=== PATIENT | female | born 2000 ===

== ENCOUNTER 2021-07-20 10:21 | Emergency (ER) | payer OTHER ==
[2021-07-20 10:24] VITALS: BP 100/67; PULSE 92; RESP 18; TEMP 98
[2021-07-20] MEDS ORDERED: IBUPROFEN 600 MG TAB PO STA (10:54)
[2021-07-20] MEDS ORDERED: ACETAMINOPHEN TAB 500 MG TAB PO STA (10:54)
[2021-07-20] MEDS ORDERED: BENZONATATE 100 MG CAP PO STA (11:17)
--- NOTE | 2021-07-20 11:53 | XR ---
EXAMINATION TYPE: XR chest 2V DATE OF EXAM: 07/20/2021 COMPARISON: None HISTORY: 20-year-old female with cough and congestion TECHNIQUE: PA and lateral views FINDINGS: The cardiomediastinal silhouette, aorta, and pulmonary vasculature are within normal limits. Lungs an d pleural spaces are clear. IMPRESSION: No acute cardiopulmonary process.
--- NOTE | 2021-07-20 12:02 | ED ---
General Adult HPI - General Chief complaint: Upper Respiratory Infection Stated complaint: SOB/Cough Time Seen by Provider: 07/20/21 10:28 Source: patient Mode of arrival: ambulatory Limitations: no limitations - History of Present Illness Initial comments: 20-year-old female presents to the emergency room for a chief complaint of cough. Patient states for the past 2 days she has had a cough as well as a headache and sore throat. She has had body aches as well. Her chest hurts when she coughs but only when she coughs. She has tried Excedrin and other [id number] cold and flu medication but in the past 2 days it has not gone away. She denies any fevers. Denies difficulty swallowing.Patient has no other complaints at this time including shortness of breath, chest pain, abdominal pain, nausea or vomiting, or visual changes. - Related Data Previous Rx's Medication Instructions Recorded Benzonatate [Tessalon Perles] 200 mg PO Q8H PRN #30 capsule 07/20/21 guaiFENesin [Mucinex] 1,200 mg PO Q12HR PRN #20 tab 07/20/21 Allergies Allergy/AdvReac Type Severity Reaction Status Date / Time No Known Allergies Allergy Verified 07/20/21 10:24 Review of Systems ROS Statement: Those systems with pertinent positive or pertinent negative responses have been documented in the HPI. ROS Other: All systems not noted in ROS Statement are negative. Past Medical History Past Medical History: No Reported History History of Any Multi-Drug Resistant Organisms: None Reported Past Surgical History: No Surgical Hx Reported Past Psychological History: No Psychological Hx Reported Smoking Status: Never smoker Past Alcohol Use History: Occasional Past Drug Use History: Marijuana General Exam Limitations: no limitations General appearance: alert, in no apparent distress Head exam: Present: atraumatic Eye exam: Present: normal appearance, PERRL, EOMI. Absent: scleral icterus, conjunctival injection ENT exam: Present: normal exam, normal oropharynx, mucous membranes moist, TM's normal bilaterally, normal external ear exam Neck exam: Present: normal inspection, full ROM. Absent: tenderness Respiratory exam: Present: normal lung sounds bilaterally, chest wall tenderness (Anterior chest wall tenderness noted). Absent: respiratory distress, wheezes Cardiovascular Exam: Present: regular rate, normal rhythm, normal heart sounds Course Vital Signs 07/20/21 10:22 Temperature 98 F Pulse Rate 92 Respiratory 18 Rate Blood Pressure 100/67 O2 Sat by Pulse 98 Oximetry Medical Decision Making - Medical Decision Making Vitals are stable. COVID-19 and influenza are negative. Chest x-ray shows no acute cardiopulmonary process. Patient will be treated with Tessalon Perles and Mucinex. She can continue to take Motrin and Tylenol. She will return here for any worsening symptoms. - Lab Data Lab Results 07/20/21 07/20/21 Range/Units 10:35 10:35 Coronavirus (PCR) Not Detected (Not Detectd) Influenza Type A RNA Not Detected (Not Detectd) Influenza Type B (PCR) Not Detected (Not Detectd) Disposition Clinical Impression: Cough Disposition: HOME SELF-CARE Condition: Good Instructions (If sedation given, give patient instructions): Upper Respiratory Infection (ED) Additional Instructions: Take Tessalon perles as needed for cough. Mucinex as needed for congestion. Follow up with your doctor. Return to the ER for any worsening symptoms. Prescriptions: guaiFENesin [Mucinex] 1,200 mg PO Q12HR PRN #20 tab PRN Reason: Congestion Benzonatate [Tessalon Perles] 200 mg PO Q8H PRN #30 capsule PRN Reason: Cough Is patient prescribed a controlled substance at d/c from ED?: No Referrals: Matt Olivares DO [Doctor of Osteopathic Medicine] - 1-2 days Time of Disposition: 12:00
== END 2021-07-20 12:10 | disposition home or self-care (01) ==
LOC: EC 10:21
DX: R05.9 Cough, unspecified (principal); R51.9 Headache, unspecified; R07.0 Pain in throat; Z20.822 Contact with and (suspected) exposure to COVID-19
CPT/HCPCS: 71046; 87502; 87635; 99284

== ENCOUNTER 2024-05-12 06:15 | Inpatient (IN) | payer MEDICAID, OTHER ==
[2024-05-12] MEDS ORDERED: TRANEXAMIC 1,000 MG/100ML-NACL 1,000 MG in EMPTY BAG 1 BAG IV PRN (06:41)
[2024-05-12] MEDS ORDERED: METHYLERGONOVINE 0.2 MG/ML 1 ML AMP IM PRN (06:41)
[2024-05-12] MEDS ORDERED: LIDOCAINE 0.5% (PF) 5 MG/ML (50 ML SDV) SQ PRN (06:41)
[2024-05-12] MEDS ORDERED: TERBUTALINE 1 MG/ML VIAL SQ PRN (06:41)
[2024-05-12] MEDS ORDERED: miSOPROStoL 200 MCG TAB RECTAL PRN (06:41)
[2024-05-12] MEDS ORDERED: miSOPROStoL 200 MCG TAB PO PRN (06:41)
[2024-05-12] MEDS ORDERED: OXYTOCIN 10 UNIT/ML 1 ML VIAL IM PRN (06:41)
[2024-05-12] MEDS ORDERED: CARBOPROST TROMETHAMINE 250 MCG/ML 1 ML AMP IM PRN (06:41)
[2024-05-12] MEDS: LACTATED RINGERS 1,000 ML IV SCH (06:42)
[2024-05-12] MEDS: OXYTOCIN 30 UNITS/500 ML NS 30 UNIT in SALINE 1 500ML.BAG IV SCH (06:50)
[2024-05-12 07:02] LABS: Anisocytosis Slight; Basophils % (A) 0 %; Eosinophils # (A) 0.1 k/uL (0-0.7); Eosinophils % (A) 1 %; HCT 32.2 % (34.0-46.0); Hypochromasia Marked; Lymphocytes # (A) 2.5 k/uL (1.0-4.8); Lymphocytes % (A) 15 %; MCV 74.3 fL (80.0-100.0); Mean Platelet Volume 8.3; Microcytosis Slight; Monocytes # (A) 0.7 k/uL (0-1.0); Monocytes % (A) 4 %; Neutrophils # (A) 13.1 k/uL (1.3-7.7); Neutrophils % (A) 78 %; Platelet Count 298 k/uL (150-450); Poikilocytosis Slight; RBC 4.33 m/uL (3.80-5.40); RDW 16.3 % (11.5-15.5); WBC 16.8 k/uL (3.8-10.6)
[2024-05-12] MEDS ORDERED: BUTORPHANOL 1 MG/ML 1 ML VIAL IV PRN (09:27)
--- NOTE | 2024-05-12 09:32 | P.HPOB ---
History of Present Illness H&P Date: 05/12/24 Chief Complaint: 39+ weeks, elective induction The patient is a 23-year-old 2 para 0-0-1-0 admitted at 39+ weeks as established by last menstrual period and confirmed by 9-week ultrasound. She is admitted for elective induction of labor with a favorable cervix and all signs reassuring, category 1 heart rate tracing. Her has been completely uncomplicated and group B strep status is negative. Obstetrical history: 2 para 0-0-1-0 with current statistics listed in history of present illness. EDC of 05/16/2024 was established by last menstrual period and confirmed by 9-week ultrasound. Laboratory workup demonstrates a blood type of O+ with a negative antibody screen. Rubella status is immune. The remainder of the laboratory workup was within normal limits. 1 hour Glucola was normal and group B strep status is negative. Gynecologic history: Unremarkable with no history of any infections to include STDs. Review of Systems Review of systems is confined to history of present illness. Past Medical History Past Medical History: No Reported History History of Any Multi-Drug Resistant Organisms: None Reported Past Surgical History: No Surgical Hx Reported Past Anesthesia/Blood Transfusion Reactions: No Reported Reaction Past Psychological History: No Psychological Hx Reported Smoking Status: Never smoker Past Alcohol Use History: Occasional Past Drug Use History: Marijuana - Past Family History Mother History Unknown: Yes Medications and Allergies Home Medications Medication Instructions Recorded Confirmed Type Ferrous Sulfate [Iron] 1 tablet PO DAILY 05/12/24 05/12/24 History Pnv No.154/Iron Fum/Folic Acid 1 capsule PO DAILY 05/12/24 05/12/24 History [ Plus Vitamin Tablet] Allergies Allergy/AdvReac Type Severity Reaction Status Date / Time No Known Allergies Allergy Verified 05/12/24 06:39 Exam Vital Signs Temp Pulse Resp BP Pulse Ox 05/12/24 06:39 97.5 F L 116 H 16 107/72 99 Intake and Output 05/11/24 05/12/24 05/12/24 22:59 06:59 14:59 Other: Weight 78.925 kg General, this is a well-developed, well-nourished white female in no acute distress. Her heart has a regular rhythm and rate without murmur. Her lungs are clear to auscultation bilaterally in all yuan. Her abdomen is gravid, nondistended, has normal active bowel sounds, soft, nontender, and without any palpable masses aside from uterine fundus. Her extremities are without any cyanosis, clubbing, or edema and are nontender to palpation bilaterally. Digital cervical examination demonstrates her cervix to be 3 cm dilated, 50% effaced, with the vertex and presentation at -2 station. Artificial rupture of membranes is carried out demonstrating clear fluid. Results Result Diagrams: 05/12/24 06:42 Abnormal Lab Results - Last 24 Hours (Table) 05/12/24 Range/Units 06:42 WBC 16.8 H (3.8-10.6) k/uL Hgb 10.0 L (11.4-16.0) gm/dL Hct 32.2 L (34.0-46.0) % MCV 74.3 L (80.0-100.0) fL MCH 23.0 L (25.0-35.0) pg RDW 16.3 H (11.5-15.5) % Neutrophils # 13.1 H (1.3-7.7) k/uL Assessment and Plan (1) Term Current Visit: Yes Status: Acute Code(s): Z34.90 - ENCNTR FOR SUPRVSN OF NORMAL , UNSP, UNSP TRIMESTER SNOMED Code(s): 32528595 Plan: The patient is admitted for elective induction of labor. Pitocin augmentation has been started and artificial rupture of membranes carried out. She will have close maternal and surveillance and expectant management will be practiced. She is a good candidate for either IV or epidural analgesia, chart she may choose.
[2024-05-12] MEDS ORDERED: ROPIVACAINE 5 MG/ML 30 ML VIAL ONE (10:25)
[2024-05-12] MEDS ORDERED: fentaNYL (PF) 50 MCG/ML 5 ML AMP ONE (10:25)
[2024-05-12] MEDS ORDERED: SODIUM CHLORIDE 0.9% 250 ML BAG ONE (10:25)
[2024-05-12] MEDS: ACETAMINOPHEN IV (For NPO) 1,000 MG in EMPTY BAG 1 BAG IVPB ONE (18:55)
[2024-05-12] MEDS: CITRIC ACID-SODIUM CITRATE 15 ML CUP PO ONE (22:48)
[2024-05-12] MEDS ORDERED: LIDOCAINE HCL/PF 20 MG/ML 10 ML AMP ONE (22:57)
[2024-05-12] MEDS ORDERED: OXYTOCIN 30 UNITS/500 ML NS BAG IV ONE (22:57)
[2024-05-12] MEDS ORDERED: MORPHINE SULFATE (PF) 0.3 MG/0.3 ML SYR ONE (22:57)
[2024-05-12] MEDS ORDERED: fentaNYL (PF) 50 MCG/ML 2 ML AMP ONE (22:57)
[2024-05-12] MEDS ORDERED: ONDANSETRON 4 MG/2 ML VIAL ONE (22:57)
[2024-05-12] MEDS ORDERED: KETOROLAC 15 MG/ML 1 ML VIAL ONE (22:57)
[2024-05-12] MEDS ORDERED: NALOXONE 0.4 MG/ML 1 ML VIAL IV PRN (23:49)
[2024-05-12] MEDS ORDERED: ONDANSETRON 4 MG/2 ML VIAL IVP PRN (23:49)
[2024-05-12] MEDS ORDERED: ZOLPIDEM 5 MG TAB PO PRN (23:49)
[2024-05-12] MEDS ORDERED: METOCLOPRAMIDE 5 MG/ML 2 ML VIAL IVP PRN (23:49)
[2024-05-12] MEDS ORDERED: diphenhydrAMINE 25 MG CAP PO PRN (23:49)
[2024-05-12] MEDS ORDERED: diphenhydrAMINE 50 MG/ML 1 ML VIAL IVP PRN ×2 (23:49)
[2024-05-12] MEDS ORDERED: LANOLIN CREAM 1 GM TUBE TOPICAL PRN (23:49)
[2024-05-12] MEDS ORDERED: SIMETHICONE 80 MG CHEWABLE PO PRN (23:49)
[2024-05-12] MEDS ORDERED: diphenhydrAMINE 50 MG CAP PO PRN (23:49)
--- NOTE | 2024-05-12 23:57 | P.OP ---
Date of Procedure: 05/12/24 Preoperative Diagnosis: 1. 39-3/7 weeks, induction #2. Arrest of dilation and descent Postoperative Diagnosis: Same Procedure(s) Performed: 1. Primary low-transverse section Anesthesia: spinal Surgeon: Gene Parker Rn Nicu #1: Jeannette Haile Estimated Blood Loss (ml): 550 IV fluids (ml): 700 Urine output (ml): 150 Pathology: none sent Condition: stable Disposition: floor Operative Findings: Briefly, the patient had been with an adequate contraction pattern with the majority of the day. She was initially found to be approximately 7 cm dilated around 1:00 this afternoon and remained unchanged until she agreed to undergo primary low-transverse section at approximately 1015 tonight. She, after a lengthy conversation with myself and her partner, understood the diagnosis of arrest of dilation and descent and agreed to undergo section. She was taken to the operating room where she was delivered of a viable 8 pound 9 ounce baby boy with Apgars of 9 at 1 minute and 9 at 5 minutes delivered in the left occiput transverse position. The placenta was delivered manually, intact, grossly normal with a grossly normal three-vessel cord. The uterus, tubes, and ovaries were entirely normal to inspection. Description of Procedure: Patient was prepped and draped in usual fashion after epidural anesthesia was bolused by the anesthesiologist. A Pfannenstiel incision was made and extended into the abdominal cavity that difficulty. The bladder peritoneum was significantly distal to the intended site of incision and was left intact. A 2 cm incision was made in the transverse plane of the lower uterine segment to enter the uterus at which time clear fluid was again noted. The incision was extended both directions using the bandage scissors. The head was delivered up and through the incision where the nose and mouth were thoroughly suction. The remainder of the infant was delivered onto the field where the cord was doubly clamped, cut, and the passed for resuscitative measures with weight and Apgars as noted above. After collecting cord blood, the placenta was delivered manually and intact as noted above. The uterus was exteriorized and the anterior cavity of the uterus but then remaining placental or membranous fragments. The margins of the uterine incision were grasped with Terry clamps and the uterine incision closed in 2 layers. The first layer was a running locking stitch of 0 chromic catgut from margin to margin followed by a running imbricating stitch of 0 chromic catgut from margin to margin. Hemostasis appeared to be excellent. The posterior cul-de-sac was suctioned with a guard and the uterine and ovarian findings were normal as noted above. The uterus was replaced within the abdominal cavity and the gutters swept of any remaining blood, fluid, or clot. The incision was reexamined and found to be hemostatic. The parietal peritoneum was loosely reapproximated and the layer of muscles made hemostatic with the Bovie. The fascia was closed with a single running stitch of 0 Vicryl proceeding from margin to margin. The subcutaneous tissues were irrigated, made hemostatic with the Bovie, and reapproximated with a running stitch of 3-0 plain catgut from margin to margin. The incision was closed with a running subcuticular stitch of 4-0 Vicryl followed by half-inch Steri-Strips placed with Mastisol. Quantitative blood loss for the case was 550 mL. There were no complications. All sponge, instrument, and needle counts were correct. The patient tolerated the procedure well and proceeded to the recovery room in stable condition. Both mother and infant are resting comfortably in recovery.
[2024-05-13] MEDS: OXYTOCIN 30 UNITS/500 ML NS 30 UNIT in SALINE 1 500ML.BAG IV SCH (00:53)
[2024-05-13 06:11] LABS: Anisocytosis Slight; HCT 28.5 % (34.0-46.0); HGB 8.9 gm/dL (11.4-16.0); Hypochromasia Marked; MCH 23.3 pg (25.0-35.0); MCHC 31.2 g/dL (31.0-37.0); MCV 74.7 fL (80.0-100.0); Mean Platelet Volume 8.2; Microcytosis Slight; Platelet Count 278 k/uL (150-450); Poikilocytosis Slight; RBC 3.82 m/uL (3.80-5.40); RDW 16.6 % (11.5-15.5); WBC 30.9 k/uL (3.8-10.6)
[2024-05-13] MEDS: KETOROLAC 15 MG/ML 1 ML VIAL IVP PRN (06:27)
--- NOTE | 2024-05-13 07:00 | P.PN ---
Progress Note - Text 05/13/24 640am 33-year-old female status post with an epidural catheter, she received 3 mg of Duramorph while the epidural catheter for postop pain control. Patient seen and evaluated, she feels pressure on the incision site, no complaints of nausea vomiting or pruritus
[2024-05-13 07:26] LABS: Band Neutrophils % 17 %; Lymphocytes # (M) 0.62 k/uL (1.0-4.8); Monocytes # (M) 0.62 k/uL (0-1.0); Neutrophils % (M) 80 %; Nucleated Red Blood Cells 0 /100 WBC (0-0); Total Cells Counted 200
[2024-05-13 07:27] LABS: Anisocytosis (M) Present; Hypochromasia (M) Present; Poikilocytosis (M) Present
[2024-05-13] MEDS: ACETAMINOPHEN TAB 500 MG TAB PO SCH (09:01)
[2024-05-13] MEDS: SENNOSIDES-DOCUSATE SODIUM 1 EACH TAB PO SCH (09:01)
--- NOTE | 2024-05-13 10:17 | P.PNOBGPC ---
Subjective - Subjective Patient reports: Reports appetite normal, Reports voiding normally, Reports pain well controlled, Reports ambulating normally : doing well, nursing well Objective - Vital Signs Latest vital signs: Vital Signs Temp Pulse Pulse Resp BP Pulse Ox 05/13/24 08:00 98.8 F 111 H 14 101/61 05/13/24 06:00 99.2 F 112 H 112 H 16 94/58 98 05/13/24 02:20 98.3 F 118 H 16 98 05/13/24 01:56 98.3 F 118 H 16 95/62 98 05/13/24 01:41 107 H 16 109/65 98 05/13/24 01:26 109 H 16 111/53 98 05/13/24 01:11 99 16 100/57 97 05/13/24 00:56 112 H 16 98/58 97 05/13/24 00:41 105 H 16 101/56 97 05/13/24 00:26 108 H 16 99/59 97 05/13/24 00:11 116 H 16 105/62 96 05/12/24 23:56 113 H 05/12/24 23:48 99.4 F 113 H 16 109/58 97 Intake and Output 05/12/24 05/13/24 05/13/24 22:59 06:59 14:59 Output Total 3450 1400 Balance -3450 -1400 Output: Urine 2800 1400 Uretheral ([place]) 700 Output, Quantitative 650 Blood Loss Other: Voiding Method Indwelling Catheter - Exam Extremities: Present: normal Abdomen: Present: normal appearance, soft. Absent: distention, tenderness Incision: Present: normal, dry, dressed Uterus: Present: normal, firm - Labs Labs: Abnormal Lab Results - Last 24 Hours (Table) 05/13/24 Range/Units 04:40 WBC 30.9 H (3.8-10.6) k/uL Hgb 8.9 L (11.4-16.0) gm/dL Hct 28.5 L (34.0-46.0) % MCV 74.7 L (80.0-100.0) fL MCH 23.3 L (25.0-35.0) pg RDW 16.6 H (11.5-15.5) % Neutrophils # (Manual) 29.90 H (1.3-7.7) k/uL Lymphocytes # (Manual) 0.62 L (1.0-4.8) k/uL Assessment and Plan (1) Term Current Visit: Yes Status: Acute Code(s): Z34.90 - ENCNTR FOR SUPRVSN OF NORMAL , UNSP, UNSP TRIMESTER SNOMED Code(s): 39771296 (2) S/P section Current Visit: Yes Status: Acute Code(s): Z98.891 - HISTORY OF UTERINE SCAR FROM PREVIOUS SURGERY SNOMED Code(s): 608026686 Plan: Continue routine and postoperative care. I have encouraged the patient ambulate in the hallways routinely. She is otherwise tolerating regular diet. I would anticipate possible discharge home tomorrow should the patient choose assuming no complications.
[2024-05-13] MEDS: IBUPROFEN 800 MG TAB PO SCH (21:30)
[2024-05-14 00:43] VITALS: TEMP 98.3
[2024-05-14 08:42] VITALS: BP 93/63; PULSE 93; RESP 14
--- NOTE | 2024-05-14 10:00 | P.DS ---
Providers Date of admission: 05/12/24 06:21 Expected date of discharge: 05/14/24 Attending physician: Gene Parker Primary care physician: Hollis Sean - Discharge Diagnosis(es) (1) S/P section Current Visit: Yes Status: Acute Hospital Course: Patient presented in labor. Underwent a primary low-transverse . Postoperative course has been uneventful. She denies nausea, vomiting, chest pain, shortness of breath and calf pain. Patient will be discharged home postoperative day #2 in stable condition to follow-up with Dr. Parker 2 we eks. Plan - Discharge Summary New Discharge Prescriptions: No Action Pnv No.154/Iron Fum/Folic Acid [ Plus Vitamin Tablet] 1 capsule PO DAILY Ferrous Sulfate [Iron] 1 tablet PO DAILY Discharge Medication List Ferrous Sulfate [Iron] 1 tablet PO DAILY 05/12/24 [History] Pnv No.154/Iron Fum/Folic Acid [ Plus Vitamin Tablet] 1 capsule PO DAILY 05/12/24 [History] Follow up Appointment(s)/Referral(s): Gene Parker MD [STAFF PHYSICIAN] - 6 Weeks (06-23-24 @ 2:00 pm) Discharge Disposition: HOME SELF-CARE
== END 2024-05-14 17:43 | disposition home or self-care (01) | DRG 540 ==
LOC: 4FBP 06:21
PROVIDERS: ADMIT Obstetrics & Gynecology; ATTEND Obstetrics & Gynecology
PROC: 10D00Z1 Extraction of Products of Conception, Low, Open Approach (ICD-10-PCS; principal; 2024-05-12 22:30)
PROC: 10907ZC Drainage of Amniotic Fluid, Therapeutic from Products of Conception, Via Natural or Artificial Opening (ICD-10-PCS; principal; 2024-05-12 22:30)
DX: O62.0 Primary inadequate contractions (principal); O32.2XX0 Maternal care for transverse and oblique lie, not applicable or unspecified; Z3A.39 39 weeks gestation of pregnancy; Z37.0 Single live birth
CPT/HCPCS: 85025; 86850; 86900; 86901